=== PATIENT | female | born 1995 | race Caucasian/White ===

== ENCOUNTER 2017-05-09 09:48 | Inpatient (IN) | payer BC ==
[~2017-05-09] VITALS: Ht 167.6 cm; Wt 134.1 kg
[~2017-05-09 09:48] MED LIST: CAMILA0.35 MG PO; IBUPROFEN800 MG PO; PRENATAL 19 CH1 EAC1 PO; TYLENOL EXTRA500 MG PO; ZYRTEC10 M3 PO
[2017-05-09 10:06] VITALS: BP 121/67
[2017-05-09 11:05] LABS: EOSINOPHIL (%) 0.6 % (0-5); EOSINOPHIL COUNT 0.1 K/uL (0-0.3); HEMATOCRIT 40.9 % (36.0-46.0); IMMATURE GRANULOCYTE (%) 0.6 % (0.0-0.7); IMMATURE GRANULOCYTE COUNT 0.1 K/uL; INSTRUMENT ABS NEUTROPHIL CT 9.5 K/uL; LYMPHOCYTE COUNT 1.9 K/uL (1.0-2.8); MCHC 35.2 G/DL (30.0-36.0); MCV 93.6 FL (83-99); MEAN PLAT.VOLUME 10.1 uM^3 (9.5-12.4); MONOCYTE (%) 6.3 % (3-12); MONOCYTE COUNT 0.8 K/uL (0-0.8); NEUTROPHIL (%) 76.8 % (45-76); NEUTROPHIL COUNT 9.5 K/uL (1.8-6.4); PLATELET COUNT 203 K/uL (156-360); RBC DIS.WIDTH-CV 11.9 % (11.8-14.6); RBC DIS.WIDTH-SD 41.2 % (39-53); RED BLOOD COUNT 4.37 M/uL (3.80-5.20); WHITE BLOOD COUNT 12.4 K/uL (4.1-10.2)
[2017-05-09 15:53] VITALS: BP 119/60
[2017-05-09 17:00] VITALS: BP 130/78
[2017-05-09 18:14] VITALS: BP 129/60
[2017-05-10 06:20] VITALS: BP 142/66
[2017-05-10 06:24] LABS: EOSINOPHIL (%) 0.7 % (0-5); EOSINOPHIL COUNT 0.1 K/uL (0-0.3); HEMATOCRIT 39.7 % (36.0-46.0); IMMATURE GRANULOCYTE (%) 0.6 % (0.0-0.7); IMMATURE GRANULOCYTE COUNT 0.1 K/uL; INSTRUMENT ABS NEUTROPHIL CT 10.4 K/uL; LYMPHOCYTE COUNT 1.5 K/uL (1.0-2.8); MCH 34.5 PG (29.0-34.0); MCHC 36.3 G/DL (30.0-36.0); MCV 95.2 FL (83-99); MEAN PLAT.VOLUME 10.3 uM^3 (9.5-12.4); MONOCYTE (%) 5.6 % (3-12); MONOCYTE COUNT 0.7 K/uL (0-0.8); NEUTROPHIL (%) 81.1 % (45-76); NEUTROPHIL COUNT 10.4 K/uL (1.8-6.4); PLATELET COUNT 194 K/uL (156-360); RBC DIS.WIDTH-CV 12.1 % (11.8-14.6); RBC DIS.WIDTH-SD 42.6 % (39-53); RED BLOOD COUNT 4.17 M/uL (3.80-5.20); WHITE BLOOD COUNT 12.8 K/uL (4.1-10.2)
[2017-05-10 11:11] VITALS: BP 121/70
[2017-05-10 15:46] VITALS: BP 129/67
[2017-05-10 19:33] VITALS: BP 124/60
[2017-05-10 23:25] VITALS: BP 125/67
[2017-05-11 03:16] VITALS: BP 131/69
[2017-05-11 07:11] VITALS: BP 126/62
[2017-05-11 11:48] VITALS: BP 121/65
[2017-05-11 14:19] VITALS: BP 127/71
[2017-05-11 19:47] VITALS: BP 132/73
[2017-05-11 22:37] VITALS: BP 130/64
[2017-05-12 02:44] VITALS: BP 121/66
[2017-05-12 07:34] VITALS: BP 115/63
[2017-05-12 11:21] VITALS: BP 125/71
[2017-05-12 15:45] VITALS: BP 121/56
[2017-05-12 18:52] VITALS: BP 124/58
[2017-05-12 23:30] VITALS: BP 90/43
[2017-05-13 02:58] VITALS: BP 132/70
[2017-05-13 07:30] VITALS: BP 113/58
[2017-05-13] MEDS ORDERED: ENDOCET 5-3251 EACH PO (08:27)
[2017-05-13] MEDS ORDERED: IBUPROFEN800 MG PO (08:27)
[2017-05-13 11:04] VITALS: BP 120/71
== END 2017-05-13 12:25 | disposition home or self-care (01) | DRG 766 ==
LOC: 2WEST 09:48 → 2SOUTH 12:31 → 2WEST 05-13 12:25
PROVIDERS: Obstetrics & Gynecology
PROC: 3E0R3GC Introduction of Other Therapeutic Substance into Spinal Canal, Percutaneous Approach (ICD-10-PCS; principal; 2017-05-09)
PROC: 10D00Z1 Extraction of Products of Conception, Low, Open Approach (ICD-10-PCS; principal; 2017-05-09)
DX: O66.0 Obstructed labor due to shoulder dystocia (principal); O99.214 Obesity complicating childbirth; E66.9 Obesity, unspecified; Z37.0 Single live birth; Z3A.39 39 weeks gestation of pregnancy; Z87.891 Personal history of nicotine dependence; Z68.30 Body mass index [BMI] 30.0-30.9, adult; O89.4 Spinal and epidural anesthesia-induced headache during the puerperium; Y84.4 Aspiration of fluid as the cause of abnormal reaction of the patient, or of later complication, without mention of misadventure at the time of the procedure; G97.1 Other reaction to spinal and lumbar puncture
CPT/HCPCS: 85025; 86900; 86901; C1755; J0690; J1200; J1885; J2274; J2405; J7050; J7120

== ENCOUNTER 2017-05-30 17:56 | Emergency (ER) | payer BC ==
[~2017-05-30] VITALS: Ht 167.6 cm; Wt 123.6 kg
[~2017-05-30 17:56] MED LIST changes: +ENDOCET 5-3251 EACH PO
[2017-05-30] MEDS ORDERED: CLEOCIN300 MG PO (19:12)
[2017-05-30 19:25] VITALS: BP 135/80
== END 2017-05-30 19:26 | disposition home or self-care (01) ==
LOC: EME 17:56
DX: O86.0 Infection of obstetric surgical wound (principal)
CPT/HCPCS: 99281; 99283